=== PATIENT | male | born 1950 | race Caucasian/White ===

== ENCOUNTER 2017-12-04 08:47 | Day surgery (SDC) | payer OTHER ==
[2017-11-30 12:50] VITALS: BMI 32.7
[2017-12-04] MEDS ORDERED: PROPOFOL 20 ML ONE ×2 (09:06)
[2017-12-04 10:44] VITALS: TEMP 98.2
[2017-12-04 11:09] VITALS: BP 133/82; PULSE 64
== END 2017-12-04 11:12 | disposition home or self-care (01) ==
LOC: FASU-ENDO 08:47
PROVIDERS: ATTEND Internal Medicine Gastroenterology
PROC: 0DJD8ZZ Inspection of Lower Intestinal Tract, Via Natural or Artificial Opening Endoscopic (ICD-10-PCS; principal; 2017-12-04 10:18)
DX: Z12.11 Encounter for screening for malignant neoplasm of colon (principal)
CPT/HCPCS: 82962